=== PATIENT | female | born 1995 | race Asian ===

== ENCOUNTER 2017-07-10 22:25 | Emergency (ER) | payer MEDICAID ==
[~2017-07-10] VITALS: Ht 154.9 cm; Wt 75.3 kg
[2017-07-11 00:56] LABS: BASOPHIL % 0.6 % (0-2); CALCIUM 8.5 mg/dL (8.5-10.1); CARBON DIOXIDE 28.2 mmol/L (21-32); CHLORIDE SERUM 104 mmol/L (98-107); CREATININE SERUM 0.6 mg/dL (0.6-1.0); GFR1 > 60 mL/min; GLUCOSE SERUM 100 mg/dL (74-106); PLATELET COUNT 297 x10^3mcL (130-400); POTASSIUM SERUM 3.7 mmol/L (3.5-5.1); RED CELL DISTRIBUTION WIDTH 13.8 % (11.5-14.5); SODIUM SERUM 138 mmol/L (136-145)
[2017-07-11 01:01] LABS: ALBUMIN 3.6 g/dL (3.4-5.0); ALKALINE PHOSPHATASE 45 U/L (46-116); ALT/SGPT 25 U/L (14-59); AST/SGOT 13 U/L (15-37); BILIRUBIN TOTAL 0.3 mg/dL (0.20-1.00); TOTAL PROTEIN, SERUM 7.5 g/dL (6.4-8.2)
[2017-07-11 01:23] VITALS: BP 128/90
[2017-07-11 03:50] LABS: ERYTHROCYTE SED RATE 26 mm/hr (0-20)
== END 2017-07-11 01:39 | disposition left against medical advice (07) ==
LOC: ED 22:25
PROVIDERS: Emergency Medicine
DX: R51 Headache (principal)
CPT/HCPCS: 36415; 83880; J2405; J3010; Q0162